=== PATIENT | female | born 1995 | race Caucasian/White ===

== ENCOUNTER 2018-07-27 11:27 | Emergency (ER) | payer OTHER ==
[2018-07-27 11:42] VITALS: RESP 16
[2018-07-27] MEDS ORDERED: TOPICAL SKIN ADHESIVE 1 EACH AMP TOPICAL ONE (12:07)
--- NOTE | 2018-07-27 12:54 | ED ---
General Adult HPI - General Chief complaint: Wound/Laceration Stated complaint: rt arm lac Time Seen by Provider: 07/27/18 12:05 Source: patient, RN notes reviewed Mode of arrival: ambulatory Limitations: no limitations - History of Present Illness Initial comments: Patient 22-year-old female presenting to the emergency room today with a chief complaint of laceration to the right forearm that occurred earlier this morning. States jar broke and fell onto her right forearm causing this laceration. She states her tetanus is up-to-date. Patient denies any other complaints. Patient denies any recent fever, chills, shortness of breath, chest pain, back pain, abdominal pain, nausea or vomiting, numbness or tingling, headaches or visual changes, or any other complaints. - Related Data Home Medications Medication Instructions Recorded Confirmed No Known Home Medications 07/27/18 07/27/18 Allergies Allergy/AdvReac Type Severity Reaction Status Date / Time No Known Allergies Allergy Verified 07/27/18 12:03 Review of Systems ROS Statement: Those systems with pertinent positive or pertinent negative responses have been documented in the HPI. ROS Other: All systems not noted in ROS Statement are negative. Past Medical History Past Medical History: No Reported History History of Any Multi-Drug Resistant Organisms: None Reported Past Surgical History: Tonsillectomy Past Psychological History: ADD/ADHD Smoking Status: Current every day smoker Past Alcohol Use History: None Reported Past Drug Use History: Marijuana General Exam - General Exam Comments Initial Comments: General: The patient is awake and alert, in no distress, and does not appear acutely ill. Musculoskeletal: Full range of motion. Sensation intact. Radial pulse 2+. Strength 5/5. Neurological: A&O x 3. CN II-XII intact, There are no obvious motor or sensory deficits. Coordination appears grossly intact. Speech is normal. Skin: 1.5 cm linear laceration to the volar aspect of the right forearm with no active bleeding. Psychiatric: Normal mood and affect. Limitations: no limitations Course Vital Signs 07/27/18 11:39 Temperature 98.4 F Pulse Rate 93 Respiratory 16 Rate Blood Pressure 143/84 O2 Sat by Pulse 98 Oximetry Procedures - Procedures Initial comment: 1.5 cm linear laceration to the right forearm. Laceration was cleaned with saline here in the emergency room and wound edges were approximated and closed with Dermabond. Patient tolerated well. Medical Decision Making - Medical Decision Making Patient's laceration was cleaned and closed emergency room. Her tetanus is up- to-date. She be discharged home. Disposition Clinical Impression: Laceration Disposition: HOME SELF-CARE Condition: Good Instructions (If sedation given, give patient instructions): Laceration (ED) Additional Instructions: History includes follow-up on its own over the next 3-5 days. Please watch for any signs of infection which may include increased pain, swelling or redness. Please return for any other concerns. Is patient prescribed a controlled substance at d/c from ED?: No Referrals: None,Stated [Primary Care Provider] - 1-2 days Time of Disposition: 12:54
[2018-07-27 13:28] VITALS: BP 132/78; PULSE 88; TEMP 98.2
== END 2018-07-27 13:22 | disposition home or self-care (01) ==
LOC: EC 11:27
DX: S51.811A Laceration without foreign body of right forearm, initial encounter (principal); F17.200 Nicotine dependence, unspecified, uncomplicated; W20.8XXA Other cause of strike by thrown, projected or falling object, initial encounter
CPT/HCPCS: 12001; 99282

== ENCOUNTER 2022-10-29 11:26 | Emergency (ER) | payer OTHER ==
[2022-10-29 11:33] VITALS: RESP 18; TEMP 97.9
--- NOTE | 2022-10-29 11:51 | ED ---
Female Urogenital HPI - General Chief complaint: Vaginal Bleeding Stated complaint: Abd Pain and Vaginal Bleeding Time Seen by Provider: 10/29/22 11:34 Source: patient, RN notes reviewed Mode of arrival: ambulatory Limitations: no limitations - History of Present Illness Initial comments: Patient is a 26 year old female presenting to the emergency room with complaints of vaginal bleeding ongoing for approximately 3 weeks with increase i n intensity over the last several days. She has associated severe cramping, lower abdominal pain radiating into her back. She reports some fevers recently along with nausea and vomiting. She reports that she took multiple tests at home which were negative. She does admit to having unprotected intercourse with a single partner consequently she is at risk for being but denies any STD concerns. She denies any vaginal discharge besides bleeding, dysuria or urinary frequency. She denies any upper abdominal pain or diarrhea. She denies any chest pain shortness, shortness of breath, headache, dizziness, or chills. She denies any significant past medical history including any history of endometriosis or polycystic ovarian disease. She has never been . - Related Data Home Medications Medication Instructions Recorded Confirmed No Known Home Medications 07/27/18 07/27/18 Allergies Allergy/AdvReac Type Severity Reaction Status Date / Time No Known Allergies Allergy Verified 10/29/22 11:28 Review of Systems ROS Statement: Those systems with pertinent positive or pertinent negative responses have been documented in the HPI. ROS Other: All systems not noted in ROS Statement are negative. Past Medical History Past Medical History: No Reported History History of Any Multi-Drug Resistant Organisms: None Reported Past Surgical History: Tonsillectomy Past Psychological History: ADD/ADHD Smoking Status: Current every day smoker Past Alcohol Use History: Occasional Past Drug Use History: Marijuana General Exam - General Exam Comments Initial Comments: GENERAL: No acute distress, well developed, well nourished. HEENT: Normocephalic, atraumatic. Pupils equal, round, reactive to light. Moist mucous membranes. LUNGS: No respiratory distress. Clear to auscultation, no adventitious sounds, no use of accessory muscles. HEART: Regular rate and rhythm without murmur, rub, or gallop. ABDOMEN/: Normal bowel sounds. Soft, non-distended. Bilateral lower quadrant abdominal tenderness and pelvic tenderness. No rebound tenderness or guarding. Pelvic exam demonstrates normal external exam. Speculum exam demonstrates what endovaginal vault without clots. Os slightly open. No masses or lacerations appreciated. BACK: Normal inspection. No CVA tenderness. EXTREMITIES: No edema. No tenderness. Moves all extremities. NEUROLOGIC: Alert & oriented x 3. CN II-XII grossly intact. PSYCHIATRIC: Normal affect and behavior. DERMATOLOGIC: Skin intact, without rashes or lesions noted. Limitations: no limitations Course Vital Signs 10/29/22 10/29/22 11:29 13:33 Temperature 97.9 F Pulse Rate 63 59 L Respiratory 18 18 Rate Blood Pressure 129/78 118/72 O2 Sat by Pulse 100 99 Oximetry Medical Decision Making - Medical Decision Making Was pt. sent in by a medical professional or institution (, PA, MARKET GARDENER, urgent care, hospital, or assisted...) When possible be specific @ -No Did you speak to anyone other than the patient for history (EMS, parent, family, police, friend...)? What history was obtained from this source @ -No Did you review nursing and triage notes (agree or disagree)? Why? @ -I reviewed and agree with nursing and triage notes Were old charts reviewed (outside hosp., previous admission, EMS record, old EKG, old radiological studies, urgent care reports/EKG's, assisted records)? Report findings @ -No old charts were reviewed Differential Diagnosis (chest pain, altered mental status, abdominal pain women, abdominal pain men, vaginal bleeding, weakness, fever, dyspnea, syncope, headache, dizziness, GI bleed, back pain, seizure, CVA, palpatations, mental health, musculoskeletal)? @ -Differential Vaginal Bleeding: Spontaneous , threatened , molar , ectopic , bloody show, incompetent cervix, abruptioplacenta, placenta previa, uterine rupture, dysfunctional uterine bleeding, hemorrhage, uterine fibroids, this is not meant to be an all-inclusive list. EKG interpreted by me (3pts min.). @ -None done X-rays interpreted by me (1pt min.). @ -None done CT interpreted by me (1pt min.). @ -None done U/S (1pt. min.). @ -Ultrasound pelvic complete: Not interpreted by me. No uterine abnormalities. No intrauterine identified. Free fluid in right adnexal region consistent with recent cystic rupture. Ovarian cysts bilateral ovaries. What testing was considered but not performed or refused? (CT, X-rays, U/S, labs)? Why? @ -None What meds were considered but not given or refused? Why? @ -None Did you discuss the management of the patient with other professionals (professionals i.e. , PA, MARKET GARDENER, lab, RT, psych nurse, director social welfare, corporate legal assistant, teacher, credit or loans officer, therapeutic case manager)? Give summary @ -No Was smoking cessation discussed for >3mins.? @ -No Was critical care preformed (if so, how long)? @ -No Were there social determinants of health that impacted care today? How? (Homelessness, low income, unemployed, alcoholism, drug addiction, transportation, low edu. Level, literacy, decrease access to med. care, [facility], rehab)? @ -No Was there de-escalation of care discussed even if they declined (Discuss DNR or withdrawal of care, Hospice)? DNR status @ -No What co-morbidities impacted this encounter? (DM, HTN, Smoking, COPD, CAD, Cancer, CVA, ARF, Chemo, Hep., AIDS, mental health diagnosis, sleep apnea, morbid obesity)? @ -None Was patient admitted / discharged? Hospital course, mention meds given and route, prescriptions, significant lab abnormalities, going to OR and other pertinent info. @ -26-year-old female presenting to the emergency room with complaints of vaginal bleeding ongoing for 3 days with abdominal pain, cramping, nausea and recent fevers. Negative home test. Will begin workup for abnormal vaginal bleeding with pelvic ultrasound, CBC, BMP, serum quantitative hCG, coag and ABO/rh typing. CBC normal coags normal, CMP shows elevated glucose 103 otherwise no abnormalities. HCG quantitative less than 2.4. Ultrasound of the pelvis demonstrates ovarian cyst with free fluid in the right adnexal region consistent with recent cyst rupture. No concerning abnormalities on pelvic exam. No indication for further diagnostic imaging or laboratory studies at this time. Workup as above discussed with patient. Encouraged follow-up with primary care provider with possible referral to OPERATIONS MANAGER ASSISTANT for further evaluation and treatment of abnormal uterine bleeding and ovarian cysts. Advised use of [id number] Tyl enol or Motrin as needed for pain. Will discharge home in stable condition on oral analgesics for abdominal pain with dysfunctional uterine bleeding advising follow-up with primary care provider and/or OPERATIONS MANAGER ASSISTANT. Undiagnosed new problem with uncertain prognosis? @ -No Drug Therapy requiring intensive monitoring for toxicity (Heparin, Nitro, Insuli n, Cardizem)? @ -No Were any procedures done? @ -No Diagnosis/symptom? @ -Dysfunction uterine bleeding Acute, or Chronic, or Acute on Chronic? @ -Acute Uncomplicated (without systemic symptoms) or Complicated (systemic symptoms)? @ -Uncomplicated Side effects of treatment? @ -No Exacerbation, Progression, or Severe Exacerbation? @ -No Poses a threat to life or bodily function? How? (Chest pain, USA, MD, pneumonia, PE, COPD, DKA, ARF, appy, cholecystitis, CVA, Diverticulitis, Homicidal, Suicidal, threat to staff... and all critical care pts) @ -No Diagnosis/symptom? @ -Ovarian cysts Acute, or Chronic, or Acute on Chronic? @ -Chronic Uncomplicated (without systemic symptoms) or Complicated (systemic symptoms)? @ -Uncomplicated Side effects of treatment? @ -none Exacerbation, Progression, or Severe Exacerbation] @ -no Pses a threat to life or bodily function? @ -no. Case discussed with Dr. Ferguson. - Lab Data Result diagrams: 10/29/22 11:48 10/29/22 11:48 Lab Results 10/29/22 10/29/22 10/29/22 Range/Units 11:48 11:48 11:48 WBC 9.2 (3.8-10.6) k/uL RBC 4.97 (3.80-5.40) m/uL Hgb 15.5 (11.4-16.0) gm/dL Hct 45.5 (34.0-46.0) % MCV 91.6 (80.0-100.0) fL MCH 31.2 (25.0-35.0) pg MCHC 34.0 (31.0-37.0) g/dL RDW 12.7 (11.5-15.5) % Plt Count 263 (150-450) k/uL MPV 8.2 Neutrophils % 68 % Lymphocytes % 22 % Monocytes % 5 % Eosinophils % 3 % Basophils % 1 % Neutrophils # 6.2 (1.3-7.7) k/uL Lymphocytes # 2.0 (1.0-4.8) k/uL Monocytes # 0.5 (0-1.0) k/uL Eosinophils # 0.3 (0-0.7) k/uL Basophils # 0.0 (0-0.2) k/uL PT 10.2 (9.0-12.0) sec INR 1.0 (<1.2) APTT 25.5 (22.0-30.0) sec Sodium 139 (137-145) mmol/L Potassium 4.4 (3.5-5.1) mmol/L Chloride 105 (98-107) mmol/L Carbon Dioxide 26 (22-30) mmol/L Anion Gap 8 mmol/L BUN 14 (7-17) mg/dL Creatinine 0.56 (0.52-1.04) mg/dL Est GFR (CKD-EPI)AfAm >90 (>60 ml/min/1.73 sqM) Est GFR (CKD-EPI)NonAf >90 (>60 ml/min/1.73 sqM) Glucose 103 H (74-99) mg/dL Calcium 9.0 (8.4-10.2) mg/dL HCG, Quant <2.4 mIU/mL Blood Type Blood Type Recheck Bld Type Recheck Status 10/29/22 Range/Units 11:48 WBC (3.8-10.6) k/uL RBC (3.80-5.40) m/uL Hgb (11.4-16.0) gm/dL Hct (34.0-46.0) % MCV (80.0-100.0) fL MCH (25.0-35.0) pg MCHC (31.0-37.0) g/dL RDW (11.5-15.5) % Plt Count (150-450) k/uL MPV Neutrophils % % Lymphocytes % % Monocytes % % Eosinophils % % Basophils % % Neutrophils # (1.3-7.7) k/uL Lymphocytes # (1.0-4.8) k/uL Monocytes # (0-1.0) k/uL Eosinophils # (0-0.7) k/uL Basophils # (0-0.2) k/uL PT (9.0-12.0) sec INR (<1.2) APTT (22.0-30.0) sec Sodium (137-145) mmol/L Potassium (3.5-5.1) mmol/L Chloride (98-107) mmol/L Carbon Dioxide (22-30) mmol/L Anion Gap mmol/L BUN (7-17) mg/dL Creatinine (0.52-1.04) mg/dL Est GFR (CKD-EPI)AfAm (>60 ml/min/1.73 sqM) Est GFR (CKD-EPI)NonAf (>60 ml/min/1.73 sqM) Glucose (74-99) mg/dL Calcium (8.4-10.2) mg/dL HCG, Quant mIU/mL Blood Type A Positive Blood Type Recheck No Previous Record Bld Type Recheck Status ABR ONLY - Radiology Data Radiology results: report reviewed, image reviewed Disposition Clinical Impression: Dysfunctional uterine bleeding, Ovarian cyst Disposition: HOME SELF-CARE Condition: Stable Instructions (If sedation given, give patient instructions): Dysmenorrhea (ED) Additional Instructions: Please utilize Tylenol or Motrin [id number] as needed for pain. Avoid intercourse until resolution of symptoms and or follow-up with OB. Please follow-up with your primary care provider and DIGITAL ARTIST doctor. Please return to the Emergency Department if symptoms worsen or any other concerns. Is patient prescribed a controlled substance at d/c from ED?: No Referrals: None,Stated [Primary Care Provider] - 1-2 days Time of Disposition: 13:46
[2022-10-29 12:14] LABS: Basophils % (A) 1 %; Eosinophils # (A) 0.3 k/uL (0-0.7); Eosinophils % (A) 3 %; HCT 45.5 % (34.0-46.0); HGB 15.5 gm/dL (11.4-16.0); Lymphocytes % (A) 22 %; MCH 31.2 pg (25.0-35.0); MCV 91.6 fL (80.0-100.0); Mean Platelet Volume 8.2; Monocytes # (A) 0.5 k/uL (0-1.0); Monocytes % (A) 5 %; Neutrophils # (A) 6.2 k/uL (1.3-7.7); Neutrophils % (A) 68 %; Platelet Count 263 k/uL (150-450); RBC 4.97 m/uL (3.80-5.40); RDW 12.7 % (11.5-15.5); WBC 9.2 k/uL (3.8-10.6)
[2022-10-29 12:24] LABS: Partial Thromboplastin Time 25.5 sec (22.0-30.0); Prothrombin Time 10.2 sec (9.0-12.0)
[2022-10-29 12:31] LABS: African American GFR (CKD) >90 (>60 ml/min/1.73 sqM); Anion Gap 8 mmol/L; Blood Urea Nitrogen 14 mg/dL (7-17); Carbon Dioxide 26 mmol/L (22-30); Chloride 105 mmol/L (98-107); Glucose 103 mg/dL (74-99); Non-African American GFR(CKD) >90 (>60 ml/min/1.73 sqM); Potassium 4.4 mmol/L (3.5-5.1); Sodium 139 mmol/L (137-145)
[2022-10-29 12:48] LABS: HCG,Quantitative Serum <2.4 mIU/mL
--- NOTE | 2022-10-29 13:28 | US ---
EXAMINATION TYPE: US transvaginal DATE OF EXAM: 10/29/2022 COMPARISON: US 2010 CLINICAL INDICATION: Female, 26 years old with history of vaginal bleeding; Abnormal vaginal bleeding . G0. TECHNIQUE: Transvaginal (TV). Date of LMP: Unknown, pt states episodes of irregular bleeding. EXAM MEASUREMENTS: Uterus: 8.8 x 5.0 x 4.3 cm Endometrial Stripe: 0.54 cm Right Ovary: 2.7 x 1.8 x 1.7 cm Left Ovary: 3.9 x 2.5 x 2.3 cm 1. Uterus: Anteverted Anechoic area in cervix: 1.0 x 1.1 x 0.7 cm. This is consistent with a nabot hian cyst. 2. Endometrium: Measures 0.54 cm. Pt having vaginal bleeding. 3. Right Ovary: Anechoic area seen: 1.3 x 0.7 x 0.8 cm. Consistent with a follicle. 4. Left Ovary: Complex/septated area seen: 1.7 x 1.3 x 1.2 cm. Mildly complex cyst. Spectral, color and waveform doppler imaging shows arterial and venous flow within the ovaries. 5. Bilateral Adnexa: Free fluid was seen within the right adnexa adjacent to right ovary 6. Posterior cul-de-sac: Appears wnl IMPRESSION: 1. Small amount of free fluid adjacent to the right adnexa which may be physiologic versus related t o recently ruptured follicle. 2. Mildly complex left ovarian cyst. Consider follow-up pelvic ultrasound in 6-12 weeks.
[2022-10-29 13:33] VITALS: BP 118/72; PULSE 59
== END 2022-10-29 13:58 | disposition home or self-care (01) ==
LOC: EC 11:26
DX: N93.8 Other specified abnormal uterine and vaginal bleeding (principal); N83.202 Unspecified ovarian cyst, left side; F90.9 Attention-deficit hyperactivity disorder, unspecified type; F12.90 Cannabis use, unspecified, uncomplicated; F17.200 Nicotine dependence, unspecified, uncomplicated
CPT/HCPCS: 36415; 76830; 80048; 84702; 85025; 85610; 85730; 86900; 86901; 93975; 99284